=== PATIENT | female | born 1965 | race Caucasian/White ===

== ENCOUNTER 2022-02-14 18:37 | Emergency (ER) | payer BC, MEDICAID ==
[~2022-02-14] VITALS: Ht 154.9 cm; Wt 68.0 kg
[2022-02-14 18:41] VITALS: BP 180/120
[2022-02-14] MEDS ORDERED: KETOROLAC 60 MG/2 ML VIAL IM ONE (18:55)
--- NOTE | 2022-02-14 19:08 | NUR ---
56 Y/O FEMALE BIB DAUGHTER C/O 07/30 PRESSURE ON THE CHEST, X40 MINUTES AGO, RADIATING TO THE ARM AND HEAD,SOB. 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 SATTING AT 96% ON ROOM AIR, NAUSEA, NO VOMITING. A./OX4, NO CHANGES IN LOC NOTED NKA HTN, DM
--- NOTE | 2022-02-14 19:44 | NUR ---
Pt report given to CORAL. Transfer of care at this time.
--- NOTE | 2022-02-14 20:00 | NUR ---
HANDOFF GIVEN TO TROY SOUSA. TX OF CARE AT THIS TIME.
[2022-02-14] MEDS ORDERED: IBUP-2213 PO (21:56)
[2022-02-14] MEDS ORDERED: ACET-8386 PO (21:56)
[2022-02-14] MEDS ORDERED: PRED20TA5 PO (21:56)
[2022-02-14 22:20] VITALS: BP 180/120
--- NOTE | 2022-02-14 22:20 | NUR ---
Patient discharged with v/s stable. Written and verbal after care instructions given and explained. Patient alert, oriented and verbalized understanding of instructions. Ambulatory with steady gait. All questions addressed prior to discharge. ID band removed. Patient advised to follow up with PMD. Rx of HYDROCODONE/ACETOMINOPHEN, IBUPROFEN, PREDNISONE given. Patient educated on indication of medication including possible reaction and side effects. Opportunity to ask questions provided and answered.
== END 2022-02-14 22:20 | disposition home or self-care (01) ==
LOC: MED 18:37
DX: R07.89 Other chest pain (principal); R05.9 Cough, unspecified; M54.9 Dorsalgia, unspecified; E11.9 Type 2 diabetes mellitus without complications; I10 Essential (primary) hypertension; Z98.890 Other specified postprocedural states; Z90.710 Acquired absence of both cervix and uterus
CPT/HCPCS: 81002; 81025; 93005; 96372; 99283; J1885